=== PATIENT | male | born 1960 ===

== ENCOUNTER → 2020-09-28 10:59 | Outpatient (ROUT) | payer OTHER, SELFPAY | PROVIDERS: Visit Provider Dermatology | DX: L03.012 Cellulitis of left finger (principal) | CPT/HCPCS: 87070; 87205 ==

== ENCOUNTER → 2020-10-26 13:05 | Outpatient (ROUT) | payer OTHER, SELFPAY | PROVIDERS: Visit Provider Dermatology | DX: B35.1 Tinea unguium (principal) | CPT/HCPCS: 87102 ==